=== PATIENT | male | born 1985 | race Asian ===

== ENCOUNTER 2019-02-18 00:43 | Emergency (ER) | payer OTHER ==
[~2019-02-18] VITALS: Ht 160 cm; Wt 65.9 kg
[2019-02-18] MEDS ORDERED: LISI-661 PO (01:48)
[2019-02-18] MEDS ORDERED: BACITRACIN 0.9 GM PACKET OINTMENT TP ONE (02:00)
[2019-02-18 02:50] VITALS: BP 127/70
== END 2019-02-18 02:58 | disposition home or self-care (01) ==
LOC: EMS 00:43
DX: S13.4XXA Sprain of ligaments of cervical spine, initial encounter (principal); S80.212A Abrasion, left knee, initial encounter; S60.812A Abrasion of left wrist, initial encounter; F10.10 Alcohol abuse, uncomplicated; F17.210 Nicotine dependence, cigarettes, uncomplicated; I10 Essential (primary) hypertension; Z79.899 Other long term (current) drug therapy; V43.52XA Car driver injured in collision with other type car in traffic accident, initial encounter; Y93.89 Activity, other specified; Y92.89 Other specified places as the place of occurrence of the external cause; Y99.8 Other external cause status
CPT/HCPCS: 72040; 99406